=== PATIENT | female | born 1975 | race African-American/Black ===

== ENCOUNTER 2017-02-12 16:31 | Emergency (ER) | payer OTHER ==
[~2017-02-12] VITALS: Ht 157.5 cm; Wt 99.8 kg
[~2017-02-12 16:31] MED LIST: ADVIL200 M2 PO; BACTRIM DS 8001 TAB PO; CIPRO 500MG TA500 MG PO; ERYTHROMYCIN5 MG/GM OPH; IBUPROFEN600 M1 PO; KEFLEX500 MG PO; NAPROSYN500 M1 PO; OXYCODONE5 MG PO; PERCOCET 325 MG1 TA2 PO; TRAMADOL HCL50 M1 PO; TYLENOL #31 TAB PO; TYLENOL500 MG PO; ULTRACET 325 MG1 TAB PO; ZOFRAN ODT4 MG PO; ZOFRAN ODT4 MG SL
--- NOTE | 2017-02-12 20:24 | ED SKIN/ALLERGY COMPLAINT ---
History of Present Illness General Chief Complaint: General Adult Stated Complaint: MTAIAS X 2 DAYS AND 2 BOILS PER PT Source: patient Exam Limitations: no limitations Vital Signs & Intake/Output Vital Signs & Intake/Output Vital Signs Date Time Temp Pulse Resp B/P B/P Pulse O2 O2 Flow FiO2 Mean Ox Delivery Rate 02/13 2116 97.9 67 18 160/94 100 Room Air 02/13 2036 98.1 70 18 165/81 02/12 2033 99 Room Air 02/12 1634 96.8 90 15 142/90 95 Room Air Room Air Allergies Coded Allergies: No Known Allergies (02/12/17) Reconcile Medications Cephalexin 500 MG CAPSULE 1 CAP PO Q6 CELLULITIS Diclofenac Sodium 75 MG TABLET.DR 1 TAB PO BID PRN PAIN Ibuprofen (Advil) 200 MG TABLET 4 TAB PO Q4H PRN PAIN (Reported) Ibuprofen 600 MG TABLET 1 TAB PO TID PRN PAIN Naproxen (Naprosyn) 500 MG TABLET 1 TAB PO BID PRN PAIN Tramadol HCl 50 MG TABLET 1 TAB PO TID PRN PAIN Triage Note: PT TO ED FOR C/C OF HEADACHE TO FRONTAL FOREHEAD AREA THAT RADIATES INTO TEMPORAL AREA X 2 DAYS. TOOK MOTRIN WITHOUT RELIEF. PT ALSO COMPLAINS OF BOIL TO R AXILLA AREA AND R BUTT CHEEK AREA. DENIES FEVER OR CHILLS. Triage Nurses Notes Reviewed? yes Onset: Gradual Duration: day(s):, continues in ED Severity: moderate : No Patient currently breastfeeds: No HPI: Patient presents for evaluation of 2 boils. Patient states she has one on the right arm (armpit) that has been present over the past 3 weeks and has drained intermittently. She states she also has a boil on the right buttock that also has drained and seems to be smaller in size overall. She denies any fever or cold symptoms. She states that she has been able to make it better at all. Past History Travel History Traveled to [place] past 21 day No Medical History Any Pertinent Medical History? 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 No Review of Systems Review of Systems Constitutional: Reports: no symptoms. EENTM: Reports: no symptoms. Respiratory: Reports: no symptoms. Cardiovascular: Reports: no symptoms. GI: Reports: no symptoms. Genitourinary: Reports: no symptoms. Musculoskeletal: Reports: no symptoms. Skin: Reports: see HPI. Neurological/Psychological: Reports: no symptoms. Hematologic/Endocrine: Reports: no symptoms. Immunologic/Allergic: Reports: no symptoms. All Other Systems: Reviewed and Negative Physical Exam Physical Exam General Appearance: SEE BELOW Comments: Gen.: Well-nourished, well-developed, no acute respiratory distress. Head: Normocephalic, atraumatic. Eyes: Normal inspection bilaterally Ears: Normal inspection bilaterally Nose: Normal inspection Throat/mouth : Moist mucosa Neck: Supple, full range of motion, no goiter Lungs: Quiet respirations Back: Normal range of motion Extremities: Normal range of motion grossly, no cyanosis clubbing or edema of the upper extremities Neurologic: Cranial nerves grossly intact, speech is clear Skin: warm and dry, right axilla reveals a relatively small tender fluctuant soft tissue swelling with a small skin ulceration consistent with prior rupture, right buttock reveals approximately 1 cm diameter area of soft tissue swelling and tenderness, neither area shows erythema or warmth. Psychiatric: Calm, cooperative, no apparent delusions or hallucinations Diagram Chest, Abdomen, Back: 1) AXILLARY STS 2) NODULAR SKIN LESION Progress Differential Diagnosis: abscess/cellulitis Plan of Care: see d/c Comments: PROCEDURE NOTE: Needle aspiration performed through the area of maximal fluctuance of this patient's right axillary lesion after alcohol and Chloraseptic preparation. No purulent aspirant was obtained. I suspect cellulitis or potentially a phlegmon. Departure Departure Disposition: HOME OR SELF CARE Condition: Stable Clinical Impression Primary Impression: Right arm cellulitis Secondary Impressions: Cellulitis of buttock Referrals: Patient Has No Primary Care Dr (PCP/Family) Additional Instructions: Warm compresses to the right arm and buttock swelling. Cephalexin (antibiotic) as prescribed. Diclofenac as needed for pain. Follow-up with a primary care physician or the surgeon listed if the areas are not improving over the next 48- 72 hours. Return if any concerns or sudden worsening. Thank you for choosing the [facility] for your care. It was a pleasure to serve you today. Nathan Scanlon M.D. [facility] Departure Forms: Customer Survey General Discharge Information Prescriptions: Current Visit Scripts Cephalexin 1 CAP PO Q6 #28 CAP Diclofenac Sodium 1 TAB PO BID PRN PAIN #14 TAB
[2017-02-12 21:16] VITALS: BP 160/94
[2017-02-12] MEDS ORDERED: DICLOFENAC SODI75 M2 PO (21:16)
[2017-02-12] MEDS ORDERED: CEPHALEXIN500 M3 PO (21:16)
== END 2017-02-12 21:29 ==
LOC: ERH 16:31
DX: L03.113 Cellulitis of right upper limb (principal); L03.317 Cellulitis of buttock

== ENCOUNTER 2017-08-26 21:34 | Emergency (ER) | payer OTHER ==
[~2017-08-26] VITALS: Ht 154.9 cm; Wt 99.8 kg
[~2017-08-26 21:34] MED LIST changes: +CEPHALEXIN500 M3 PO; +DICLOFENAC SODI75 M2 PO
[2017-08-26 21:38] VITALS: BP 177/96
[2017-08-26] MEDS ORDERED: AMOXICILLIN875 M1 PO (23:30)
[2017-08-26] MEDS ORDERED: BACTRIM DS TAB1 EACH PO (23:30)
--- NOTE | 2017-08-26 23:31 | ED GENERAL ADULT ---
History of Present Illness General Chief Complaint: Skin Rash/ Abcess Stated Complaint: UNDER R ARM ?ABCESS Source: patient Exam Limitations: no limitations Vital Signs & Intake/Output Vital Signs & Intake/Output Vital Signs Date Time Temp Pulse Resp B/P B/P Pulse O2 O2 Flow FiO2 Mean Ox Delivery Rate 08/26 2232 Room Air 08/268 98.5 73 18 177/96 96 Room Air Allergies Coded Allergies: No Known Allergies (02/12/17) Reconcile Medications Amoxicillin 875 MG TABLET 1 TAB PO BID ABSCESS Cephalexin 500 MG CAPSULE 1 CAP PO Q6 CELLULITIS Diclofenac Sodium 75 MG TABLET.DR 1 TAB PO BID PRN PAIN Ibuprofen (Advil) 200 MG TABLET 4 TAB PO Q4H PRN PAIN (Reported) Ibuprofen 600 MG TABLET 1 TAB PO TID PRN PAIN Naproxen (Naprosyn) 500 MG TABLET 1 TAB PO BID PRN PAIN Sulfamethoxazole/Trimethoprim (Bactrim Ds Tablet) 800 MG-160 MG TABLET 1 TAB PO BID ABSCESS Tramadol HCl 50 MG TABLET 1 TAB PO TID PRN PAIN Triage Note: PT FROM HOME C/O RIGHT UNDER ARM/AXILLARY AREA ABSCESS SINCE FRIDAY. PTS VSS. PT STATES HX OF. VSS. AFEBRILE IN TRIAGE. PTS STATES 10 WITHOUT RELIEF FROM MOTRIN. Triage Nurses Notes Reviewed? yes Onset: Abrupt Duration: day(s): (3), constant, continues in ED, getting worse Timing: recent history Injury Environment: home Severity: moderate, severe Severity Numbers: 7 No Modifying Factors: none LMP (ages 10-50): unknown : No Patient currently breastfeeds: No HPI: 41-year-old female no history presents for evaluation of a painful red swollen area in her right axilla. This is been present for several days and is getting larger There is no trauma. She has a history of abscesses. She is not diabetic there's been no discharge no fever.. There is no trauma. She has a history of abscesses. She is not a diabetic there is been no discharge no fever.41-year-old female no history presents for evaluation of a painful red swollen area in her right axilla. This is the present for several days and is getting larger. (Prakash Hubbard) Past History Travel History Traveled to [place] past 21 day No Medical History Any Pertinent Medical History? 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 No (Prakash Hubbard) Review of Systems Review of Systems Constitutional: Reports: no symptoms. EENTM: Reports: no symptoms. Respiratory: Reports: no symptoms. Cardiovascular: Reports: no symptoms. GI: Reports: no symptoms. Genitourinary: Reports: no symptoms. Musculoskeletal: Reports: no symptoms. Skin: Reports: see HPI (abscess). Neurological/Psychological: Reports: no symptoms. Hematologic/Endocrine: Reports: no symptoms. Immunologic/Allergic: Reports: no symptoms. All Other Systems: Reviewed and Negative (Prakash Hubbard) Physical Exam Physical Exam General Appearance: well developed/nourished, no apparent distress, alert, awake Head: atraumatic, normal appearance Eyes: Bilateral: normal appearance, EOMI. Ears, Nose, Throat: hearing grossly normal Neck: normal inspection, supple, full range of motion Respiratory: no respiratory distress Peripheral Pulses: 2+ radial (R), 2+ radial (L) Back: normal inspection, normal range of motion Extremities: normal inspection, normal range of motion, no edema Neurologic/Psych: no motor/sensory deficits, awake, alert, oriented x 3, normal gait, normal mood/affect Skin: intact, normal color, warm/dry, there is a 1.5 cm diameter area of focal fluctuance with erythema and surrounding induration in the right axilla. The area is tender to palpation there is no discharge no palpable lymphadenopathy Lymphatic: no anterior cervical alberto Core Measures ACS in differential dx? No CVA/TIA Diagnosis: No Sepsis Present: No Sepsis Focused Exam Completed? No (Prakash Hubbard) Progress Differential Diagnoses I considered the following diagnoses in my evaluation of the patient: [Abscess, lymphadenopathy, lymphoma, cellulitis] Plan of Care: Orders Procedure Date/time Status EXTREMETIES CULTURE 08/26 2320 Active Microbiology 08/27 2319 EXTREMITIE: Culture & Sensitivity - RECD 08/27 2319 EXTREMITIE: Gram Stain - RECD Patient is here with an abscess to right axilla. The area was cleaned with Betadine. 1% lidocaine without epi was used for local pain control. 11 blade used to open the area of focal fluctuance or purulent discharge expressed. Culture obtained. The abscess pocket was drained and flushed. Packing placed. Sterile dressing placed. Discussed wound care procedures in detail. Patient will be covered with Bactrim and amoxicillin. Discussed wound care procedures return in 2 days for packing removal and dressing change return sooner with any concerns discussed return precautions patient agrees Initial ED EKG: none (Prakash Hubbard) Departure Departure Disposition: HOME OR SELF CARE Condition: Stable Clinical Impression Primary Impression: Abscess Referrals: Patient Has No Primary Care Dr (PCP/Family) Additional Instructions: TAKE ANTIBIOTICS FOR FULL COURSE. TYLENOL/IBNUPROFEN FOR PAIN. RETURN IN 2 DAYS FOR WOUND CHECK RETYURN SOONER WITH ANY CONCERNS. Departure Forms: Customer Survey General Discharge Information Prescriptions: Current Visit Scripts Sulfamethoxazole/Trimethoprim (Bactrim Ds Tablet) 1 TAB PO BID #20 TAB Amoxicillin 1 TAB PO BID #20 TAB (Prakash Hubbard) PA/DOCUMENTUM CONSULTANT Co-Sign Statement Statement: ED Attending supervision documentation- [] I saw and evaluated the patient. I have also reviewed all the pertinent lab results and diagnostic results. I agree with the findings and the plan of care as documented in the PA's/DOCUMENTUM CONSULTANT's documentation. [x] I have reviewed the ED Record and agree with the PA's/DOCUMENTUM CONSULTANT's documentation. [] Additions or exceptions (if any) to the PAs/DOCUMENTUM CONSULTANT's note and plan are summarized below: [] (Pradip ZAVALA,Anthony Sanchez) Procedures Incision and Drainage Site: right axilla Blade Size: 11 I & D Procedure: Yes: betadine prep, sterile drapes applied, sterile dressing applied, wick placed. (Prakash Hubbard) Critical Care Note Critical Care Note Critical Care Time: non-applicable (Prakash Hubbard)
== END 2017-08-26 23:58 ==
LOC: ERH 21:34
DX: L02.411 Cutaneous abscess of right axilla (principal)
CPT/HCPCS: 87070; 87205